=== PATIENT | female | born 1950 | race Caucasian/White ===

== ENCOUNTER 2017-01-25 03:51 | Emergency (ER) | payer MEDICARE ==
[2017-01-25] MEDS ORDERED: Ondansetron ODT 4 MG TAB ONE (04:26)
[2017-01-25 04:44] LABS: #Basophils 0.1 thou/uL (0.0-0.2); #Eosinphils 0.2 thou/uL (0.0-0.7); #Lymphocytes 2.1 thou/uL (1.20-3.40); #Monocytes 0.9 thou/uL (0.11-0.59); #Neutrophils 10.6 thou/uL (1.40-6.50); %Basophils 0.7 % (0.0-1.0); %Eosinophils 1.4 % (0.0-10.0); %Lymphocytes 15.2 % (21.0-51.0); %Monocytes 6.3 % (0.0-10.0); %Neutrophils 76.3 % (42.0-75.0); Hemoglobin 13.4 g/dL (12.0-16.0); Mean Corpuscular HGB CONC 32.3 g/dL (32.0-36.0); Mean Corpuscular Hemoglobin 26.9 pg (27.0-31.0); Mean Corpuscular Volume 83.3 fl (81.0-99.0); Mean Platelet Volume 8.4 fL (7.4-10.4); Platelet Count 296 thou/uL (130-400); RBC Distribution Width 13.8 % (11.5-14.5); Red Blood Cell (RBC) Count 4.98 mill/uL (4.20-5.40)
[2017-01-25 04:59] LABS: ALT (SGPT) 12 U/L (0-55); AST (SGOT) 14 U/L (5-34); Albumin 3.9 g/dL (3.4-4.8); Alkaline Phosphatase 92 U/L (40-150); Anion Gap 14 mmol/L (10-20); BUN (Urea Nitrogen) 17 mg/dL (9.8-20.1); Bilirubin, Total Less than 0.3 mg/dL (0.2-1.2); Calc. Creatinine Clearance 0 mL/min (70-130); Calcium 9.4 mg/dL (7.8-10.44); Carbon Dioxide 26 mmol/L (23-31); Chloride 105 mmol/L (98-107); Estimated GFR-MDRD 73; Globulin 2.7 g/dL (2.4-3.5); Glucose 134 mg/dL (80-115); Potassium 4.3 mmol/L (3.5-5.1); Protein, Total 6.6 g/dL (5.8-8.1); Sodium 141 mmol/L (136-145)
[2017-01-25 05:01] LABS: CKMB 2.2 ng/mL (0-6.6); Troponin I Less than 0.010 ng/mL (< 0.028)
== END 2017-01-25 05:28 | disposition home or self-care (01) ==
LOC: MADERS 03:51
DX: R19.7 Diarrhea, unspecified (principal); I10 Essential (primary) hypertension; R11.0 Nausea
CPT/HCPCS: 36415; 80053; 82553; 83690; 84484; 85025; 93005; Q0162

== ENCOUNTER 2019-03-12 04:21 | Emergency (ER) | payer MEDICARE ==
[2019-03-12] MEDS ORDERED: cloNIDine 0.1 MG TAB ONE (04:43)
[2019-03-12] MEDS ORDERED: Ibuprofen 800 MG TAB ONE (04:43)
[2019-03-12] MEDS ORDERED: guaiFENesin/Codeine Phosphate 100 mg/10 mg 5 ml UD Cup ONE (04:43)
== END 2019-03-12 05:22 | disposition home or self-care (01) ==
LOC: MADERS 04:21
DX: J20.9 Acute bronchitis, unspecified (principal); I10 Essential (primary) hypertension
CPT/HCPCS: 94640; J7620

== ENCOUNTER 2022-10-02 10:23 | Emergency (ER) | payer MEDICARE ==
[2022-10-02] MEDS ORDERED: Ondansetron PF 4 MG/2 ML Vial ONE (11:06)
[2022-10-02] MEDS ORDERED: Sodium Chloride 0.9% 500 ML ONE (11:06)
[2022-10-02 11:31] LABS: ALT (SGPT) 21 U/L (8-55); AST (SGOT) 24 U/L (5-34); Alkaline Phosphatase 92 U/L (40-110); Anion Gap 15 mmol/L (10-20); BUN (Urea Nitrogen) 26 mg/dL (9.8-20.1); Bilirubin, Total 0.4 mg/dL (0.2-1.2); CK (CPK) 53 U/L (29-168); Calc. Creatinine Clearance 0 mL/min (70-130); Calcium 9.3 mg/dL (7.8-10.44); Carbon Dioxide 25 mmol/L (23-31); Chloride 104 mmol/L (98-107); Estimated GFR 58; Globulin 3.2 g/dL (2.4-3.5); Glucose 168 mg/dL (83-110); Lipase 4 U/L (8-78); Protein, Total 7.2 g/dL (5.8-8.1); Sodium 140 mmol/L (136-145)
[2022-10-02 11:54] LABS: CKMB 2.3 ng/mL (0-6.6)
[2022-10-02] MEDS ORDERED: Aspirin 325 MG TAB ONE (12:00)
[2022-10-02 12:03] LABS: Bilirubin Negative (Negative); Blood, Urine Small (Negative); Glucose, Urine (Dipstick) Negative (Negative); Ketone, Urine Negative (Negative); Leukocyte Small (Negative); Nitrite Negative (Negative); Protein, Urine (Dipstick) Negative (Neg-Trace); Urobilinogen 0.2 mg/dL (Less than 2); pH, Urine 5.5 (5.0-9.0)
[2022-10-02 12:04] LABS: Clarity Hazy (Clear)
[2022-10-02 12:10] LABS: Bacteria/HPF Rare-Few HPF (None Seen); RBC/HPF 0-3 HPF (0-3)
[2022-10-02] MEDS ORDERED: cefTRIAXone\\ROCEPHIN 1 GM VIAL ONE (13:01)
[2022-10-02] MEDS ORDERED: Sodium Chloride 0.9% 100 ML ONE (13:01)
[2022-10-02] MEDS ORDERED: Heparin 10,000 UNITS/ 10 ML VIAL ONE (14:40)
[2022-10-02] MEDS ORDERED: Heparin 25,000 units/D5W 500 ML ONE (14:40)
[2022-10-02 14:52] LABS: Prothrombin Time 13.4 sec (12.0-14.7)
[2022-10-02 14:53] LABS: PTT 33.6 sec (22.9-36.1)
[2022-10-02 17:25] LABS: #Lymphocytes 0.3 thou/uL (1.20-3.40); #Monocytes 0.3 thou/uL (0.11-0.59); #Neutrophils 13.8 thou/uL (1.40-6.50); %Basophils 0.2 % (0.0-1.0); %Eosinophils 0.2 % (0.0-10.0); %Lymphocytes 2.4 % (21.0-51.0); %Monocytes 1.8 % (0.0-10.0); %Neutrophils 95.5 % (42.0-75.0); Hemoglobin 12.3 g/dL (12.0-16.0); Mean Corpuscular HGB CONC 31.1 g/dL (32.0-36.0); Mean Corpuscular Hemoglobin 26.4 pg (27.0-31.0); Mean Corpuscular Volume 84.6 fl (78.0-98.0); Mean Platelet Volume 7.5 fL (7.4-10.4); Platelet Count 312 10x3/uL (130-400); RBC Distribution Width 12.5 % (11.5-14.5); Red Blood Cell (RBC) Count 4.66 mill/uL (4.20-5.40); White Blood Cell (WBC) Count 14.4 10x3/uL (4.8-10.8)
[2022-10-02 17:46] LABS: CKMB 2.1 ng/mL (0-6.6)
== END 2022-10-02 19:24 | disposition short-term general hospital (02) ==
LOC: MADERS 10:23
DX: I21.4 Non-ST elevation (NSTEMI) myocardial infarction (principal); I10 Essential (primary) hypertension; R19.7 Diarrhea, unspecified; Z79.899 Other long term (current) drug therapy
CPT/HCPCS: 36415; 71045; 80053; 81003; 81015; 82550; 82553; 83690; 84484; 85025; 85610; 85730; 93005; 96361; 96365; 96375; J0696; J1644; J2405; J7030